=== PATIENT | female | born 1965 | race Caucasian/White ===

== ENCOUNTER 2019-07-27 | Emergency (ER) | payer OTHER, BC ==
[~2019-07-27] MED LIST: ADLT ASA LOW81 MG PO; ALLEGRA-D 2424 HOUR PO; AUGMENTIN500TAB PO; BIOTIN2500 MCG PO; CRESTOR10 MG PO; CRESTOR5 MG PO; ENGERIX-B10 MG/0.5 IM; ESTRADERM0.05 MG TD; ESTRADERM0.1 MG TD; ESTRADIOL0.05 MG TD; ESTRADIOL1 MG PO; FEMRING0.05 MG/24 VA; FLONASE NASAL50 MCG; LIPITOR40 M1 PO; MELADOX3 MG PO; MOBIC7.5 M1 PO; MULTIVITAM10 OR; PRILOSEC20 MG/CAP PO; RED YEAST XX; SIMVASTATIN5 MG PO; TRICOR145 MG PO; VARIVAX SC; ZETIA10 MG PO; ZPAK PO
== END 2019-07-27 09:12 | disposition home or self-care (01) | DRG 605 ==
DX: S60.410A Abrasion of right index finger, initial encounter (principal); W23.0XXA Caught, crushed, jammed, or pinched between moving objects, initial encounter; Y93.89 Activity, other specified; Y92.234 Operating room of hospital as the place of occurrence of the external cause; Y99.0 Civilian activity done for income or pay

== ENCOUNTER 2020-03-30 15:11 | Emergency (ER) | payer OTHER, BC ==
[~2020-03-30] VITALS: Ht 170.2 cm; Wt 76.3 kg
[2020-03-30] MEDS ORDERED: ATORVASTATIN CA40 MG PO (15:53)
[2020-03-30 16:43] VITALS: BP 121/80
== END 2020-03-30 16:43 | disposition home or self-care (01) | DRG 605 ==
LOC: ED 15:11
DX: S70.02XA Contusion of left hip, initial encounter (principal); W01.0XXA Fall on same level from slipping, tripping and stumbling without subsequent striking against object, initial encounter; Y92.234 Operating room of hospital as the place of occurrence of the external cause; Y99.0 Civilian activity done for income or pay

== ENCOUNTER 2020-12-12 07:08 | Day surgery (SDC) | payer BC ==
[~2020-12-12] VITALS: Ht 170.2 cm; Wt 72.6 kg
[~2020-12-12 07:08] MED LIST changes: +ATORVASTATIN CA40 MG PO; +ELMIRON100 MG PO; +MACROBID100 M1 PO; +PYRIDIUM200 MG PO; +VESICARE5 M1 PO
[2020-12-12] MEDS ORDERED: ASPIRIN81 MG PO (07:40)
[2020-12-12 09:32] VITALS: BP 127/71
== END 2020-12-12 09:47 | disposition home or self-care (01) | DRG 392 ==
LOC: ENDO 07:08 → ORM 08:30 → ENDO 09:47
PROVIDERS: ATTEND Internal Medicine Gastroenterology
PROC: 0DB48ZX Excision of Esophagogastric Junction, Via Natural or Artificial Opening Endoscopic, Diagnostic (ICD-10-PCS; principal; 2020-12-12)
PROC: 0DB78ZX Excision of Stomach, Pylorus, Via Natural or Artificial Opening Endoscopic, Diagnostic (ICD-10-PCS; 2020-12-12)
PROC: 0DB68ZX Excision of Stomach, Via Natural or Artificial Opening Endoscopic, Diagnostic (ICD-10-PCS; 2020-12-12)
PROC: 0DB58ZX Excision of Esophagus, Via Natural or Artificial Opening Endoscopic, Diagnostic (ICD-10-PCS; 2020-12-12)
PROC: 0D758ZZ Dilation of Esophagus, Via Natural or Artificial Opening Endoscopic (ICD-10-PCS; 2020-12-12)
PROC: 0DJD8ZZ Inspection of Lower Intestinal Tract, Via Natural or Artificial Opening Endoscopic (ICD-10-PCS; 2020-12-12)
DX: K22.2 Esophageal obstruction (principal); K21.9 Gastro-esophageal reflux disease without esophagitis; Z12.11 Encounter for screening for malignant neoplasm of colon; K29.50 Unspecified chronic gastritis without bleeding; K22.70 Barrett's esophagus without dysplasia; K20.90 Esophagitis, unspecified without bleeding; K22.8 Other specified diseases of esophagus; Q40.8 Other specified congenital malformations of upper alimentary tract; K44.9 Diaphragmatic hernia without obstruction or gangrene; K29.80 Duodenitis without bleeding; K57.30 Diverticulosis of large intestine without perforation or abscess without bleeding; K64.4 Residual hemorrhoidal skin tags; K64.8 Other hemorrhoids; E78.00 Pure hypercholesterolemia, unspecified

== ENCOUNTER 2021-01-14 08:55 | Emergency (ER) | payer BC ==
[~2021-01-14 08:55] MED LIST changes: +ASPIRIN81 MG PO
[2021-01-14 09:50] VITALS: BP 127/58
== END 2021-01-14 11:10 | disposition home or self-care (01) | DRG 918 ==
LOC: ED 08:55
DX: T63.481A Toxic effect of venom of other arthropod, accidental (unintentional), initial encounter (principal); E78.00 Pure hypercholesterolemia, unspecified

== ENCOUNTER 2022-07-07 07:34 | Day surgery (SDC) | payer BC ==
[~2022-07-07] VITALS: Ht 170.2 cm; Wt 71.2 kg
[~2022-07-07 07:34] MED LIST changes: +AMOX/K CLAV875 M1 PO; +ESCITALOPRAM OX10 MG PO; +OMEPRAZOLE20 MG PO; +ROSUVASTATIN CA20 MG PO
[2022-07-07] MEDS ORDERED: PERCOCET 5/321 COMBO PO (08:44)
[2022-07-07 12:02] VITALS: BP 135/69
== END 2022-07-07 12:00 | disposition home or self-care (01) | DRG 342 ==
LOC: ORM 07:34
PROVIDERS: ATTEND Surgery
PROC: 0WQF0ZZ Repair Abdominal Wall, Open Approach (ICD-10-PCS; principal; 2022-07-07)
PROC: 0JBD0ZZ Excision of Right Upper Arm Subcutaneous Tissue and Fascia, Open Approach (ICD-10-PCS; 2022-07-07)
PROC: 0DTJ4ZZ Resection of Appendix, Percutaneous Endoscopic Approach (ICD-10-PCS; 2022-07-07)
DX: K43.2 Incisional hernia without obstruction or gangrene (principal); K35.80 Unspecified acute appendicitis; D17.21 Benign lipomatous neoplasm of skin and subcutaneous tissue of right arm
CPT/HCPCS: J0131; J0690; J1100

== ENCOUNTER 2023-02-23 04:53 | Emergency (ER) | payer BC ==
[~2023-02-23] VITALS: Ht 170.2 cm; Wt 68.0 kg
[2023-02-23] VITALS (15 sets, daily range): BP systolic 103–161; BP diastolic 57–78
[~2023-02-23 04:53] MED LIST changes: +PERCOCET 5/321 COMBO PO
[2023-02-23] MEDS ORDERED: MULTI VIT PO (05:14)
[2023-02-23] MEDS ORDERED: ESTRACE1 MG PO (05:14)
[2023-02-23] MEDS ORDERED: B121000 MC1 (05:14)
[2023-02-23 06:42] LABS: BASO% 0.6 % (0-3); EOS% 7.4 % (0-8); HEMATOCRIT 37.2 % (37.0-47.0); HEMOGLOBIN 12.2 g/dl (12.0-16.0); LYMPH% 43.6 % (15-41); MEAN CELL VOLUME 98.4 fL CALC (80.0-100.0); MEAN CORPUSCULAR HGB 32.3 pG CALC (26.0-32.0); MEAN CORPUSCULAR HGB CONC 32.8 g/dL CAL (32.0-36.0); MONO% 8.6 % (2-13); NEUT# 2.04 thou/uL (2.00-7.15); NEUT% 39.8 % (42-76); RED BLOOD COUNT 3.78 mill/uL (4.20-5.60); RED CELL DISTRI WIDTH 12.8 % (11.5-15.5)
[2023-02-23 06:43] LABS: URINE BILIRUBIN - DIPSTICK Negative (NEGATIVE); URINE BLOOD DIPSTICK Negative (NEGATIVE); URINE GLUCOSE - DIPSTICK Negative (NEGATIVE); URINE KETONE Negative (NEGATIVE); URINE LEUK ESTERASE Negative (NEGATIVE); URINE NITRITE - DIPSTICK Negative (Negative); URINE PH 6.5 (4.5-8.0); URINE PROTEIN - DIPSTICK Negative (NEG-TRACE); URINE UROBILINOGEN - DIPSTICK 0.2 E.U./dL (0.2)
[2023-02-23 06:47] LABS: URINE COLOR Yellow
[2023-02-23 07:08] LABS: ALBUMIN 4.3 g/dL (3.2-5.0); ALKALINE PHOSPHATASE 67 u/l (38-126); ANION GAP 10 (6-22 (CALC)); BILIRUBIN, TOTAL 0.4 mg/dL (0.02-1.3); BUN 14 mg/dL (7-17); BUN/CREATININE RATIO 21 (12-20 (CALC)); CARBON DIOXIDE 29 mmol/l (22-30); CHLORIDE 106 mmol/l (95-108); CREATININE 0.7 mg/dL (0.5-1.0); ETHYL ALCOHOL 0 mg/dl (0-30); GFR FOR AFR.AMER. > 60 ML/MIN (>=60 (CALC)); GFR OTHER RACES > 60 ML/MIN (>=60 (CALC)); SGOT/AST 42 u/l (14-36); SODIUM 142 mmol/l (137-146); TOTAL PROTEIN 7.2 g/dL (6.3-8.2)
[2023-02-23 07:19] LABS: POTASSIUM 3.2 mmol/l (3.5-5.1)
[2023-02-23 07:23] LABS: ACT PARTIAL THROMBO TIME 23.5 SECONDS (20.0-32.5); PROTHROMBIN TIME 9.4 SECONDS (9.0-12.5)
[2023-02-23 07:26] LABS: D-DIMER 0.31 mg/L (0.19-0.60)
== END 2023-02-23 08:20 | disposition left against medical advice (07) | DRG 313 ==
LOC: ED 04:53
PROVIDERS: Emergency Medicine
DX: R07.9 Chest pain, unspecified (principal); F41.9 Anxiety disorder, unspecified; I10 Essential (primary) hypertension; K21.9 Gastro-esophageal reflux disease without esophagitis; E78.00 Pure hypercholesterolemia, unspecified; Z88.5 Allergy status to narcotic agent; Z91.041 Radiographic dye allergy status; Z20.822 Contact with and (suspected) exposure to COVID-19; Z53.29 Procedure and treatment not carried out because of patient's decision for other reasons

== ENCOUNTER 2023-03-14 | Emergency (ER) | payer BC ==
[~2023-03-14] VITALS: Ht 170.2 cm; Wt 70.0 kg
[2023-03-14] VITALS (13 sets, daily range): BP systolic 127–160; BP diastolic 58–126
[~2023-03-14] MED LIST changes: +B121000 MC1; +ESTRACE1 MG PO; +MULTI VIT PO
[2023-03-14 01:46] LABS: BASO% 0.4 % (0-3); EOS% 2.2 % (0-8); HEMATOCRIT 38.3 % (37.0-47.0); HEMOGLOBIN 12.8 g/dl (12.0-16.0); IMMATURE GRANULOCYTES 0.2 % (0.0-5.0); MEAN CORPUSCULAR HGB 32.7 pG CALC (26.0-32.0); MEAN CORPUSCULAR HGB CONC 33.4 g/dL CAL (32.0-36.0); MONO% 7.9 % (2-13); NEUT# 4.02 thou/uL (2.00-7.15); NEUT% 49.3 % (42-76); RED BLOOD COUNT 3.91 mill/uL (4.20-5.60); RED CELL DISTRI WIDTH 12.4 % (11.5-15.5)
[2023-03-14 01:57] LABS: ALBUMIN 4.6 g/dL (3.2-5.0); ALKALINE PHOSPHATASE 81 u/l (38-126); ANION GAP 14 (6-22 (CALC)); BUN 15 mg/dL (7-17); BUN/CREATININE RATIO 20 (12-20 (CALC)); CARBON DIOXIDE 25 mmol/l (22-30); CHLORIDE 103 mmol/l (95-108); CREATININE 0.7 mg/dL (0.5-1.0); GFR FOR AFR.AMER. > 60 ML/MIN (>=60 (CALC)); GFR OTHER RACES > 60 ML/MIN (>=60 (CALC)); POTASSIUM 3.3 mmol/l (3.5-5.1); SGOT/AST 48 u/l (14-36); SODIUM 138 mmol/l (137-146); TOTAL PROTEIN 7.5 g/dL (6.3-8.2)
[2023-03-14 01:59] LABS: BILIRUBIN, TOTAL 0.6 mg/dL (0.02-1.3)
[2023-03-14] MEDS ORDERED: PAXIL30 MG PO (03:11)
[2023-03-14] MEDS ORDERED: ATENOLOL25 MG PO (03:11)
== END 2023-03-14 10:10 | disposition home or self-care (01) | DRG 885 ==
LOC: ED
PROVIDERS: Family Medicine
DX: F23 Brief psychotic disorder (principal); F30.2 Manic episode, severe with psychotic symptoms; F41.0 Panic disorder [episodic paroxysmal anxiety]; R00.0 Tachycardia, unspecified; J32.9 Chronic sinusitis, unspecified